=== PATIENT | female | born 1980 | race Caucasian/White ===

== ENCOUNTER 2025-01-22 12:06 | Emergency (ER) | payer MEDICAID ==
[~2025-01-22] VITALS: Ht 167.6 cm; Wt 76.5 kg
[2025-01-22 13:22] LABS: BASOPHILS # (AUTO) 0.1 X10'3 (0-0.2); BASOPHILS % (AUTO) 0.7 % (0-1); EOSINOPHILS # (AUTO) 0.1 X10'3 (0-0.9); HEMATOCRIT 43.7 % (35.0-45.0); HEMOGLOBIN 14.7 g/dl (12.0-16.0); LYMPHOCYTES # (AUTO) 2.1 X10'3 (1.1-4.8); MEAN CORPUSCULAR HEMOGLOBIN 30.8 PG (27.0-31.0); MEAN CORPUSCULAR HGB CONC 33.6 g/dL (33.0-36.5); MEAN CORPUSCULAR VOLUME 91.7 FL (78-98); MEAN PLATELET VOLUME 7.5 FL (7.4-10.4); MONOCYTES # (AUTO) 0.5 X10'3 (0-0.9); MONOCYTES % (AUTO) 4.8 % (2-12); NEUTROPHILS # (AUTO) 7.2 X10'3 (1.8-7.7); NEUTROPHILS % (AUTO) 72.5 % (42-75); PLATELET COUNT 298 X10'3 (140-440); RED BLOOD COUNT 4.76 X10'6 (4.20-5.60); RED CELL DISTRIBUTION WIDTH 13.7 % (11.5-14.5); WHITE BLOOD COUNT 9.9 X10'3 (4.5-11.0)
[2025-01-22 13:23] LABS: BILIRUBIN,URINE NEGATIVE (Neg); CLARITY,URINE CLEAR (Clear); COLOR,URINE YELLOW (Yellow); GLUCOSE, URINE NEGATIVE (Neg); KETONES,URINE TRACE mg/dl (Neg); LEUKOCYTE ESTERASE ,URINE NEGATIVE (Neg); OCCULT BLOOD,URINE SMALL (Neg); PH,URINE 5.5 (4.8-8.0); PROTEIN,URINE NEGATIVE (Neg); UROBILINOGEN,URINE 0.2 E.U/dL (0.2-1.0)
[2025-01-22 13:35] LABS: URINE HCG NEGATIVE (NEG)
[2025-01-22 13:41] LABS: ALANINE AMINOTRANSFERASE 26 U/L (12-78); ALBUMIN 4.1 G/DL (3.4-5.0); ALBUMIN/GLOBULIN RATIO 1.2 (1.1-1.5); ALKALINE PHOSPHATASE 72 IU/L (46-116); ANION GAP 10 (8-16); ASPARTATE AMINO TRANSFERASE 13 U/L (10-37); BILIRUBIN,TOTAL 0.4 MG/DL (0.1-1.0); BLOOD UREA NITROGEN 14 MG/DL (7-18); BUN/CREATININE RATIO 19.2 (10.0-20.0); CALCIUM 8.9 MG/DL (8.5-10.1); CHLORIDE 106 MMOL/L (99-107); CREATININE 0.73 MG/DL (0.40-0.90); GLUCOSE 96 MG/DL (70-104); LIPASE 178 U/L (16-77); POTASSIUM 4.1 MMOL/L (3.5-5.1); SODIUM 141 MMOL/L (135-145); TOTAL CARBON DIOXIDE 25.3 MMOL/L (24-32); TOTAL PROTEIN 7.5 G/DL (6.4-8.2); eCRCL 92 ML/MIN; eGFR 87 ML/MIN
[2025-01-22 14:09] LABS: UA COLLECTION TYPE CLN CATCH MIDSTREAM
[2025-01-22 14:11] LABS: NITRITES, URINE NEGATIVE (Neg)
[2025-01-22 14:12] LABS: BACTERIA,URINE FEW /HPF (Neg); WBC,URINE 0-4 /HPF (0-4)
[2025-01-22 14:13] LABS: MUCUS STRANDS FEW /LPF (Neg); SQUAMOUS EPITHELIAL CELL,UR MODERATE /LPF (FEW); TRANSITIONAL EPI CELLS,URINE FEW /HPF
[2025-01-22 14:14] LABS: COARSE GRANULAR CAST 0-3 /LPF (NEGATIVE)
[2025-01-22] MEDS: ondansetron 4mg rapidly disintigrating tab PO ONE (15:36)
[2025-01-22] MEDS: ketorolac trometh 15mg/ml vial 15 MG/ML ML IM ONE (15:38)
[2025-01-22 16:22] VITALS: PULSE 77
[2025-01-22] MEDS ORDERED: METH-798 PO (16:35)
[2025-01-22] MEDS ORDERED: HYDR-3965 PO (16:35)
[2025-01-22] MEDS ORDERED: IBUP-862 PO (16:35)
[2025-01-22 16:43] VITALS: BP 164/90; RESP 16; TEMP 98.7; O2SAT 99
== END 2025-01-22 16:41 | disposition home or self-care (01) ==
LOC: ER 12:07
DX: M54.50 Low back pain, unspecified (principal); R11.2 Nausea with vomiting, unspecified; R68.83 Chills (without fever)
CPT/HCPCS: 36415; 74176; 80053; 81001; 81025; 83690; 85025; 96372; 99285; J1885